=== PATIENT | female | born 1980 | race Hispanic/Latino ===

== ENCOUNTER → 2016-10-17 | Outpatient (CLI) | payer OTHER, SELFPAY ==
--- NOTE | 2016-10-17 10:47 | REP ---
CERVICAL SPINE, SEVEN VIEWS: HISTORY: Cervicalgia. There is no acute fracture or subluxation. The intervertebral discs are normal in height. The neural foramina are patent. IMPRESSION: There is no acute fracture or subluxation. Signed by Manuel Jessica MD 10/17/2016 10:59 A
== END ==
LOC: M ADAMS 09:32
PROVIDERS: ATTEND Physician Assistant
DX: M54.2 Cervicalgia (principal)